=== PATIENT | female | born 1995 | race Caucasian/White ===

== ENCOUNTER → 2019-03-14 | Outpatient (CLI) | payer BC | LOC: MC.RAD 12:35 | DX: N63.20 Unspecified lump in the left breast, unspecified quadrant (principal) ==

== ENCOUNTER 2021-03-31 01:41 | Inpatient (IN) | payer BC ==
[~2021-03-31] VITALS: Ht 175.3 cm; Wt 106.8 kg
[2021-03-31] VITALS (27 sets, daily range): BP systolic 38–155; BP diastolic 59–91; PULSE 58–139; TEMP 97.4–98.6
[2021-03-31] MEDS ORDERED: BENTYL 10MG10 MG/CAP PO (01:54)
[2021-03-31] MEDS ORDERED: PRENATAL TABLET PO (01:55)
[2021-03-31] MEDS ORDERED: PROBIOTIC BLEN1 EACH PO (01:59)
--- NOTE | 2021-03-31 02:10 | NUR ---
0155 G1 at 39.4 weeks gestation to LDR6 with c/o contractions and ROM. Patient reports irregular contractions throughout the day with a large gush of fluid noted at 0050. Since ROM patient reports regular, painful contractions. She denies vaginal bleeding and reports good movement. EFMs explained and applied. FHR 130 bpm and reactive. CTX q2-3 minutes per toco. Patient tense and breathing through them. SVE 7/100/0 with clear fluid noted. Amniotrace to vagina turns dark blue. Dr. Winchester called and updated on patient. Orders to admit received. Plan of care reviewed with patient and spouse.
--- NOTE | 2021-03-31 02:45 | NUR ---
0245 UP TO BR TO VOID AND THEN SITTING ON SIDE OF BED FOR EPID PLACEMENT. INTERNAL COMBUSTION ENGINEER HERE. 0256 EPID DOSED. SEE ANESTHSIA RECORDS FOR MORE INFORMATION
[2021-03-31 02:46] LABS: BASO % 0.2 % (0.0-2.0); EOS # 0.2 (0.0-0.7); EOS % 1.1 % (0-4.0); GRAN # 8.8 (1.4-6.5); GRAN % 60.4 % (42.2-75.2); HEMATOCRIT 39.9 % (37.0-47.0); HEMOGLOBIN 13.3 g/dl (12.5-16.0); LYMPH # 4.3 (1.2-3.4); LYMPH % 29.7 % (20.0-51.0); MEAN CELL VOLUME 93 fl (80.0-100.0); MEAN CORPUSCULAR HEMOGLOBIN 31 pg (27.0-31.0); MEAN CORPUSCULAR HGB CONC 33 g/dl (33.0-37.0); MONO # 1.2 (0.1-0.6); MONO % 7.9 % (1.7-9.3); PLATELET COUNT 190 K/mm3 (130-400); REDCELL DISTRIBUTION WIDTH-CV 13.2 % (11.5-14.5)
--- NOTE | 2021-03-31 03:20 | NUR ---
0320 SVE 10/0. FEELING MUCH BETTER. TO LEFT SIDE WITH PEANUT BALL TO REST AND LABOR DOWN.
--- NOTE | 2021-03-31 04:05 | NUR ---
0405 INSTRUCTED TO PUSH WITH CONTRACTIONS.
--- NOTE | 2021-03-31 04:50 | NUR ---
0450 TO SIDE TO PUSH. FHT BASELINE 120'S WITH VARIABLE DECELS TO 80'S-90'S AFTER CONTRACTIONS LASTING 30-70 SECONDS THEN RETURN TO BASELINE.
--- NOTE | 2021-03-31 05:20 | NUR ---
0520 CONTINUE TO PUSH WITH CONTRACTIONS. FHT BASELINE 140'S WITH DECREASE TO 90'S AFTER MOST CONTRACTIONS FOR 30-40 SECONDS THEN RETURN TO BASELINE. DR VALDEZ NOTIFIED OF PT PUSHING PROGRESS AND FHT'S. WILL COME TO HOSPITAL TO EVALUATE.
--- NOTE | 2021-03-31 08:27 | NUR ---
DELIVERY NOTE: DR. VALDEZ AT BS WHEN RN TOOK OVER CARE ABOUT 0610. DR. VALDEZ PUSHING WITH PT. PUSHING INCLUDED LITHOTOMY AND TUG OF WAR. DR. VALDEZ CALLED FOR DELIVERY SET UP. AT THIS TIME, NURSERY NURSE WAS CALLED FOR DELIVERY BED BROKEN DOWN AND DR. VALDEZ AT PERINEUM. DR. VALDEZ EDUCATED PT. ON VACCUM DELIVERY. VACCUM APPLIED AND PT. STARTED PUSHING. 0635: FIRST POP OFF 0637: SECOND POP OFF 0639: PITOCIN STARTED AT 2MU/MIN PER DR. VALDEZ 0641: THIRD POP OFF 0645: PITOCIN INCREASED TO 4MU/MIN PER DR. VALDEZ EPISIOTOMY CUT BY DR. VALDEZ AND DELIVERED AT 0653. PLACED ON MATERNAL ABDOMEN AND ENTERED CARE INTO NURSERY NURSE. DR. VALDEZ GUERITA CORD GASES WELL CORD BLOOD. PLACENTA SPONTANEOUSLY DELVIERED AT 0658 AND PITOCIN STARTED. PT. UTERUS BOGGY PER DR. VALDEZ SO .2MG METHERGINE ORDERED. 0701: .2MG METHERGINE GIVEN IN L. THIGH BY RN DR. VALDEZ ORDERED 400MCG CYTOTEC 0705: 400MCG CYTOTEC ADMINISTERED RECTALLY BY DR. JOSÉ MIGUEL VALDEZ STATES IMPROVEMENT OF BOGGY UTERUS. PT. STABLE AT THIS TIME AND ENTERS RECOVERY PERIOD. WILL CONTINUE TO MONITOR PT.
--- NOTE | 2021-03-31 10:13 | NUR ---
FHT STRIP: 0615: BROKEN STRIP DUE TO PUSHING. LATE DECELERATIONS NOTED, JOSE TO 80-90S. MODERATE VARIABILTIY. RETURNED TO BASELINE OF 150-155. 0630: BROKEN STRIP NOTED DUE TO PUSHING. DECELERATIONS NOTED TO THE 80-90S. RETURNED TO 150S. 0645: BROKEN STRIP NOTED DUE TO PUSHING. DECELERATIONS NOTED TO THE 80-90S. RETURNED TO 140-150S. 0653: BROKEN STRIP NOTED DUE TO PUSHING. DECELERATIONS NOTED TO THE 90S. VIABLE MALE INFANT BORN VIA VAVD. DR. VALDEZ AT DURING THIS TIME FOR PUSHING.
--- NOTE | 2021-03-31 18:35 | NUR ---
Report recieved. Ambulating to shower. Updated whiteboard and reviewed POC.
[2021-04-01 00:45] VITALS: BP 140/90; PULSE 82; TEMP 98
[2021-04-01 03:30] VITALS: BP 127/90; PULSE 73; TEMP 97.6
--- NOTE | 2021-04-01 07:00 | NUR ---
Patient refuses COVID19 test.
--- NOTE | 2021-04-01 08:35 | NUR ---
Patient consents for COVID19 test. Collected per protocol and sent to lab.
[2021-04-01] MEDS ORDERED: IBU600 MG PO (08:47)
--- NOTE | 2021-04-01 09:08 | NUR ---
Initial visit; Patient indisposed, her thanked Med Asst for offering congratulations and God's blessings for the of their son. Med Asst thanked family for choosing [facility].
[2021-04-01 10:09] VITALS: BP 129/82; PULSE 91; TEMP 97.7
== END 2021-04-01 12:55 | disposition home or self-care (01) | DRG 806 ==
LOC: LDR 01:41 → LDRO 01:41 → LDR 01:43 → OB 01:43
PROVIDERS: ADMIT Obstetrics & Gynecology
PROC: 10D07Z6 Extraction of Products of Conception, Vacuum, Via Natural or Artificial Opening (ICD-10-PCS; principal; 2021-03-31)
PROC: 0W8NXZZ Division of Female Perineum, External Approach (ICD-10-PCS; 2021-03-31)
DX: O76 Abnormality in fetal heart rate and rhythm complicating labor and delivery (principal); O72.1 Other immediate postpartum hemorrhage; Z37.0 Single live birth; O99.02 Anemia complicating childbirth; Z3A.39 39 weeks gestation of pregnancy; O70.1 Second degree perineal laceration during delivery
CPT/HCPCS: J2210; J2405; J2590; J7120